=== PATIENT | male | born 1945 | race American Indian/Alaskan Native ===

== ENCOUNTER 2021-10-07 00:56 | Inpatient (IN) | payer MEDICARE ==
[2021-10-07] MEDS ORDERED: FUROSEMIDE 40 MG/4 ML INJ IV ONE (01:00)
--- NOTE | 2021-10-07 01:09 | Emergency Department Report ---
ED General Adult HPI - General Chief complaint: Dyspnea/Respdistress Stated complaint: KADEN PUI?: Yes Time Seen by Provider: 10/07/21 00:57 Source: patient, EMS Mode of arrival: Stretcher Limitations: No Limitations - History of Present Illness Initial comments: This is a pleasant 75-year-old male brought in by EMS with concerns of short of breath which recurrent patient that has been going on for several days now. According to the patient also EMS patient has a history of congestive heart failure he was recently admitted to the hospital for the same. On arrival, patient was sating at 79% and after albuterol given; up to 85-90%. On arrival, patient is on non-rebreather sating in high 80s and verbal order was to get RT to start BIPAP. Patient denies any other discomfort denies fever chill night sweat dizziness blurred vision lightheadedness headache tinnitus ear pain runny nose sore throat loss of taste or smell chest pain palpitation cough abdominal pain nausea vomiting diarrhea constipation dysuria myalgia arthralgia new rash and heat or cold intolerance. - Related Data Home Medications Medication Instructions Recorded Confirmed Last Taken AtorvaSTATin [Lipitor] 40 mg PO QHS 10/07/21 10/07/21 Unknown Metoprolol [Lopressor TAB] 25 mg PO BID 10/07/21 10/07/21 Unknown Previous Rx's Medication Instructions Recorded Last Taken Type Aspirin EC [Halfprin EC] 81 mg PO QDAY #30 tablet. 08/19/21 Unknown Rx Furosemide [Lasix TAB] 40 mg PO QDAY #30 tablet 08/19/21 Unknown Rx lisinopriL [Zestril TAB] 20 mg PO QDAY #30 tablet 08/19/21 Unknown Rx Allergies Allergy/AdvReac Type Severity Reaction Status Date / Time No Known Allergies Allergy Verified 08/19/21 09:44 ED Review of Systems ROS: Stated complaint: KADEN Other details as noted in HPI Constitutional: see HPI Eyes: as per HPI ENT: as per HPI Respiratory: see HPI Cardiovascular: as per HPI Endocrine: see HPI Gastrointestinal: as per HPI Genitourinary: as per HPI Musculoskeletal: as per HPI Skin: as per HPI Neurological: as per HPI Psychiatric: as per HPI Hematological/Lymphatic: as per HPI ED Past Medical Hx - Past Medical History Hx Congestive Heart Failure: Yes - Surgical History Additional Surgical History: Herniorrhaphy, thoracentesis - Social History Smoking Status: Current Every Day Smoker - Medications Home Medications: Home Medications Medication Instructions Recorded Confirmed Last Taken Type Aspirin EC [Halfprin EC] 81 mg PO QDAY #30 tablet. 08/19/21 10/07/21 Unknown Rx Furosemide [Lasix TAB] 40 mg PO QDAY #30 tablet 08/19/21 10/07/21 Unknown Rx lisinopriL [Zestril TAB] 20 mg PO QDAY #30 tablet 08/19/21 10/07/21 Unknown Rx AtorvaSTATin [Lipitor] 40 mg PO QHS 10/07/21 10/07/21 Unknown History Metoprolol [Lopressor TAB] 25 mg PO BID 10/07/21 10/07/21 Unknown History ED Physical Exam - General Limitations: No Limitations General appearance: alert, in distress (MILD DISTRESS; ABLE TO SPEAK IN FULL SENTENCES) - Head Head exam: Present: atraumatic, normocephalic, normal inspection - Eye Eye exam: Present: normal appearance, PERRL Pupils: Present: normal accommodation - ENT ENT exam: Present: normal exam, normal orophraynx - Neck Neck exam: Present: normal inspection - Respiratory Respiratory exam: Present: respiratory distress, decreased breath sounds (BILATEARLLY) - Cardiovascular Cardiovascular Exam: Present: tachycardia - GI/Abdominal GI/Abdominal exam: Present: soft. Absent: distended, tenderness, guarding, rebound - Extremities Exam Extremities exam: Present: normal inspection, full ROM - Back Exam Back exam: Present: normal inspection, full ROM - Neurological Exam Neurological exam: Present: oriented X3, CN II-XII intact - Psychiatric Psychiatric exam: Present: normal affect, normal mood - Skin Skin exam: Present: warm ED Course Vital Signs 10/07/21 10/07/21 10/07/21 01:01 01:16 01:26 Temperature 99.1 F Pulse Rate 112 H 109 H 109 H Pulse Rate [ Bilateral] Respiratory 24 18 26 H Rate Respiratory Rate [Bilateral ] Blood Pressure 157/83 159/98 O2 Sat by Pulse 85 93 100 Oximetry 10/07/21 10/07/21 10/07/21 01:31 01:44 01:45 Temperature Pulse Rate 109 H 102 H Pulse Rate [ 102 H Bilateral] Respiratory 17 28 H Rate Respiratory 28 H Rate [Bilateral ] Blood Pressure 159/98 114/70 O2 Sat by Pulse 100 96 Oximetry 10/07/21 10/07/21 10/07/21 02:01 02:15 02:31 Temperature Pulse Rate 99 H 93 H 89 Pulse Rate [ Bilateral] Respiratory 23 26 H 27 H Rate Respiratory Rate [Bilateral ] Blood Pressure 99/65 79/59 88/60 O2 Sat by Pulse 92 Oximetry 10/07/21 10/07/21 10/07/21 02:46 03:00 03:16 Temperature Pulse Rate 89 85 84 Pulse Rate [ Bilateral] Respiratory 26 H 18 24 Rate Respiratory Rate [Bilateral ] Blood Pressure 94/65 83/61 O2 Sat by Pulse Oximetry 10/07/21 10/07/21 10/07/21 03:30 03:46 04:17 Temperature Pulse Rate 84 83 100 H Pulse Rate [ Bilateral] Respiratory 24 22 Rate Respiratory Rate [Bilateral ] Blood Pressure 102/70 104/71 102/65 O2 Sat by Pulse 98 Oximetry 10/07/21 10/07/21 04:30 04:46 Temperature Pulse Rate 96 H 99 H Pulse Rate [ Bilateral] Respiratory 23 21 Rate Respiratory Rate [Bilateral ] Blood Pressure 123/80 122/80 O2 Sat by Pulse 93 87 Oximetry - Reevaluation(s) Reevaluation #1: 10/07/21 02:30 NURSE BROUGHT TO MY ATTENTION THAT PATIENT'S WAS HYPOTENSIVE; GIVEN THAT PATIENT WAS RECENTLY ADMITTED TO THE HOSPITAL, I WILL START PATIENT ON BROAD SPECTRUM ANTIBIOTICS IN CASE OF HOSPITAL ACQUIRED PNEUMONIA. 10/07/21 03:10 DDIMER RETURNED; ELEVATED; WILL GET CTPA TO R/O PE. BNP ELEVATED; THEREFORE LIKELY CHF EXACERBATION OR SUBMASSIVE/MASSIVE PE IN SETTING OF HYPOTENSION. 10/07/21 03:15 PER NURSE, PATIENT'S BLOOD PRESSURE BETTER; THEREFORE, I SUSPECT JUST CHF EXAERBATION AND NOT SUBMASSIVE PE. ED Medical Decision Making - Lab Data Result diagrams: 10/07/21 01:05 10/07/21 01:05 - EKG Data -: EKG Interpreted by Me (SINUS TACHY AT 114 BPM; NO ST ELEVATION OR DEPRESSION; RAD.) EKG shows normal: sinus rhythm Rate: normal - Medical Decision Making SPOKE TO HOSPITALIST WHO KINDLY ACCEPTED THE PATIENT FOR CHF EXACERBATION WITH BILATERAL PLEURAL EFFUSION AND PULMONARY EDEMA WHO INITIALLY WAS SATING 79% AND ON NON-REBREATHER TO 89% AND WAS IMMEDIATELY PLACED ON BIPAP; SINCE ON BIPAP FOR ABOUT 3 HORUS AND WHILE LASIX ONBOARD, PATIENT IS CURRENTLY ON 3L SATING 92-93% WITH ABOUT 600ML URINE OUTPUT. Critical care attestation.: If time is entered above; I have spent that time in minutes in the direct care of this critically ill patient, excluding procedure time. ED Disposition Clinical Impression: Acute exacerbation of CHF (congestive heart failure), Bilateral pleural effusion, Pulmonary edema cardiac cause Disposition: 02 SHORT TERM HOSPITAL Is pt being admited?: Yes Does the pt Need Aspirin: No Condition: Stable Instructions: Pulmonary Edema (ED) Time of Disposition: 05:00
[2021-10-07] MEDS ORDERED: methylPREDNISolone Sod Succinate 125 MG/2 ML INJ IV ONE (01:14)
[2021-10-07] MEDS ORDERED: LEVALBUTEROL 0.63 MG/3 ML NEBU IH ONE (01:14)
[2021-10-07 01:27] LABS: Hematocrit 38.7 % (35.5-45.6); Hemoglobin 12.9 gm/dl (11.8-15.2); Mean Corpuscular HGB Conc 33 % (32-34); Mean Corpuscular Volume 98 fl (84-94); Platelet Count 269 K/mm3 (140-440); Red Blood Count 3.96 M/mm3 (3.65-5.03); Red Cell Distribution Width 13.6 % (13.2-15.2)
--- NOTE | 2021-10-07 01:28 | XRay Report ---
CHEST 1 VIEW INDICATION / CLINICAL INFORMATION: LOW SAT ON RA; HX OF CHF. COMPARISON: Chest x-ray 08/17/2021 FINDINGS: SUPPORT DEVICES: None. HEART / MEDIASTINUM: No significant abnormality. LUNGS / PLEURA: Diffuse bilateral increased interstitial stranding and scattered airspace opacities w ithin the bases. Minimal right costophrenic angle blunting. Small dependent left pleural effusion. BONES: No significant osseous abnormality. ADDITIONAL FINDINGS: No significant additional findings. IMPRESSION: 1. Decompensated CHF with features of interstitial and alveolar pulmonary edema as well as small left and trace dependent right pleural effusions. Signer Name: Juan Holbrook II, MD Signed: 10/07/2021 1:24 AM Workstation Name: [id number]
[2021-10-07 01:54] LABS: Alanine Aminotransferase 41 units/L (7-56); Albumin 3.5 g/dL (3.9-5); BUN/Creatinine Ratio 11; Blood Urea Nitrogen 10 mg/dL (9-20); Calcium 8.3 mg/dL (8.4-10.2); Hemolysis Index 26
[2021-10-07] MEDS ORDERED: CEFEPIME/NS 2 GM/100 ML 2 GM/100 ML BAG IV ONE (02:25)
[2021-10-07] MEDS ORDERED: VANCOMYCIN/NS 1 GM/250 ML 1 GM/250 ML BAG IV ONE (02:26)
[2021-10-07 03:45] LABS: Basophils % (Manual) 0 % (0.0-1.8); Eosinophils % (Manual) 0 % (0.0-4.3); Total Cells Counted 100
[2021-10-07 03:47] LABS: Anisocytosis 1+
[2021-10-07 03:48] LABS: Giant Platelets Rare; Platelet Clumps Few; Platelet Estimate Consistent w Auto
[2021-10-07 04:03] LABS: C-Reactive Protein 2.6 mg/dL (0.00-1.30)
--- NOTE | 2021-10-07 04:46 | Cat Scan Report ---
CTA CHEST WITH CONTRAST INDICATION / CLINICAL INFORMATION: DESAT + elevated D-dimer, question possible P.E.. TECHNIQUE: Axial CT images were obtained through the chest after injection of 100 cc Omnipaque 350 IV contrast. 3 plane MIP and/or 3D reconstructions were produced. All CT scans at this location are per formed using CT dose reduction for ALARA by means of automated exposure control. COMPARISON: Chest x-ray same date FINDINGS: VASCULAR FINDINGS: PULMONARY ARTERY: Pulmonary artery is normal in size. No filling defects are present compatible with pulmonary artery embolus.. THORACIC AORTA: No significant abnormality. CORONARY ARTERY CALCIFICATION: Present -- Mild. NONVASCULAR FINDINGS: LOWER NECK: Soft tissues and musculature of the lower neck demonstrate no significant abnormality. Th e thyroid demonstrates no significant abnormality. HEART: Heart size normal. Left ventricular hypertrophy suggested. No pericardial effusion. MEDIASTINUM / SHOSHANA: No significant abnormality. ESOPHAGUS: Grossly unremarkable. LYMPH NODES: Borderline to minimally enlarged right hilar lymph nodes. LUNGS: Moderate centrilobular emphysema is demonstrated with some areas of honeycombing within the po sterior right upper lobe not excluded. Additionally, thickened septal lines are minimally present wit hin the lower lobes. Moderate passive atelectasis of the dependent upper lobes and partial lobar atel ectasis of the lower lobes is demonstrated. No endobronchial lesions. PLEURA: Dependent pleural effusions are present bilaterally [id number]-se-mexwslew in size. Bilateral locu lation suggested. No pneumothorax. THORACIC SOFT TISSUES: No significant abnormality of the chest wall or upper thoracic musculature. BONES: No significant skeletal abnormalities. ADDITIONAL CHEST FINDINGS: None. UPPER ABDOMEN: No significant abnormality. IMPRESSION: 1. No CT evidence for pulmonary embolism. 2. [id number] bilateral pleural effusions with loculated appearance. 3. Moderate centrilobular emphysema superimposed areas of lung attenuation suggesting pulmonary edema . Additional partial lobar atelectasis of the lower lobes is demonstrated. Signer Name: Juan Holbrook II, MD Signed: 10/07/2021 4:42 AM Workstation Name: [id number]
[2021-10-07] MEDS ORDERED: HYDROmorphone 1 MG/1 ML INJ IV PRN (05:24)
[2021-10-07] MEDS ORDERED: MORPHINE 2 MG/1 ML INJ IV PRN (05:24)
[2021-10-07] MEDS ORDERED: ALBUTEROL 2.5 MG/3 ML NEBU IH PRN (05:24)
[2021-10-07] MEDS ORDERED: ONDANSETRON 4 MG/2 ML INJ IV PRN (05:24)
[2021-10-07] MEDS ORDERED: ACETAMINOPHEN 325 MG TAB PO PRN (05:24)
--- NOTE | 2021-10-07 05:32 | History and Physical Report ---
History of Present Illness Date of examination: 10/07/21 Date of admission: 10/07/21 Chief complaint: Dyspnea Respiratory distress History of present illness: 75-year-old male with past medical history of congestive heart failure and tobacco abuse was brought to the emergency room because of short of breath which recurrent patient that has been going on for several days now. According to the patient also was recently admitted to the hospital for the same. On arrival, patient was sating at 79% and after albuterol given; up to 85-90%. On arrival, patient is on non-rebreather sating in high 80s and verbal order was to get RT to start BIPAP. In the emergency room patient is found to have acute CHF exacerbation. Patient proBNP is 10/04/2007, lactic acid 3.00. Chest CTA shows no evidence of PE. A small to moderate bilateral pleural effusion with loculated appearance. Moderate centrilobular emphysema. So going to admit the patient we will put the patient on CHF pathway also put the patient on antibiotic and consult cardiology for evaluation Past History Past Medical History: heart failure, hypertension Past Surgical History: Other (Herniorrhaphy, thoracentesis) Social history: other (Current everyday smoker) Family history: hypertension Medications and Allergies Allergies Allergy/AdvReac Type Severity Reaction Status Date / Time No Known Allergies Allergy Verified 08/19/21 09:44 Home Medications Medication Instructions Recorded Confirmed Last Taken Type Aspirin EC [Halfprin EC] 81 mg PO QDAY #30 tablet. 08/19/21 10/07/21 Unknown Rx Furosemide [Lasix TAB] 40 mg PO QDAY #30 tablet 08/19/21 10/07/21 Unknown Rx lisinopriL [Zestril TAB] 20 mg PO QDAY #30 tablet 08/19/21 10/07/21 Unknown Rx AtorvaSTATin [Lipitor] 40 mg PO QHS 10/07/21 10/07/21 Unknown History Metoprolol [Lopressor TAB] 25 mg PO BID 10/07/21 10/07/21 Unknown History Active Meds: Active Medications Acetaminophen (Acetaminophen 325 Mg Tab) 650 mg PO Q4H PRN PRN Reason: Pain MILD(1-3)/Fever >100.5/SCOTT Albuterol (Albuterol 2.5 Mg/3 Ml Nebu) 2.5 mg IH Q3HRT PRN PRN Reason: Shortness Of Breath Albuterol/Ipratropium (Ipratropium/Albuterol Sulfate 3 Ml Ampul.Neb) 1 ampul IH Q6HRT MESERET Famotidine (Famotidine 20 Mg Tab) 20 mg PO BID MESERET Furosemide (Furosemide 40 Mg/4 Ml Inj) 40 mg IV BID@0600,1800 MESERET Heparin Sodium (Porcine) (Heparin 5,000 Unit/1 Ml Vial) 5,000 unit SUB-Q Q12HR MESERET Hydromorphone HCl (Hydromorphone 1 Mg/1 Ml Inj) 0.5 mg IV Q3H PRN PRN Reason: Pain , Severe (7-10) Morphine Sulfate (Morphine 2 Mg/1 Ml Inj) 2 mg IV Q4H PRN PRN Reason: Pain, Moderate (4-6) Ondansetron HCl (Ondansetron 4 Mg/2 Ml Inj) 4 mg IV Q8H PRN PRN Reason: Nausea And Vomiting Sodium Chloride (Sodium Chloride 0.9% 10 Ml Flush Syringe) 10 ml IV BID MESERET Sodium Chloride (Sodium Chloride 0.9% 10 Ml Flush Syringe) 10 ml IV PRN PRN PRN Reason: LINE FLUSH Review of Systems All systems: negative Cardiovascular: edema, shortness of breath, dyspnea on exertion, paroxysmal nocturnal dyspnea Respiratory: shortness of breath, dyspnea on exertion Exam - Constitutional Vitals: Temp Pulse Resp BP Pulse Ox 99.1 F 99 H 21 122/80 87 10/07/21 01:01 10/07/21 04:46 10/07/21 04:46 10/07/21 04:46 10/07/21 04:46 General appearance: Present: no acute distress, well-nourished - EENT Eyes: Present: PERRL ENT: hearing intact, clear oral mucosa - Neck Neck: Present: supple, normal ROM - Respiratory Respiratory effort: normal Respiratory: bilateral: rales - Cardiovascular Heart Sounds: Present: S1 & S2. Absent: rub, click - Extremities Extremities: pulses symmetrical, No edema Peripheral Pulses: within normal limits - Abdominal General gastrointestinal: Present: soft, non-tender, non-distended, normal bowel sounds Male genitourinary: Present: normal - Integumentary Integumentary: Present: clear, warm, dry - Musculoskeletal Musculoskeletal: gait normal, strength equal bilaterally - Psychiatric Psychiatric: appropriate mood/affect, intact judgment & insight - Neurologic Neurologic: CNII-XII intact, moves all extremities Results - Labs CBC & Chem 7: 10/07/21 01:05 10/07/21 01:05 Labs: Laboratory Last Values WBC 5.5 K/mm3 (4.5-11.0) 10/07/21 01:05 RBC 3.96 M/mm3 (3.65-5.03) 10/07/21 01:05 Hgb 12.9 gm/dl (11.8-15.2) 10/07/21 01:05 Hct 38.7 % (35.5-45.6) 10/07/21 01:05 MCV 98 fl (84-94) H 10/07/21 01:05 MCH 33 pg (28-32) H 10/07/21 01:05 MCHC 33 % (32-34) 10/07/21 01:05 RDW 13.6 % (13.2-15.2) 10/07/21 01:05 Plt Count 269 K/mm3 (140-440) 10/07/21 01:05 Lymph % (Auto) Spa Manager 10/07/21 01:05 Add Manual Diff Complete 10/07/21 01:05 Total Counted 100 10/07/21 01:05 Seg Neutrophils % Spa Manager 10/07/21 01:05 Seg Neuts % (Manual) 28.0 % (40.0-70.0) L 10/07/21 01:05 Band Neutrophils % 0 % 10/07/21 01:05 Lymphocytes % (Manual) 69.0 % (13.4-35.0) H 10/07/21 01:05 Reactive Lymphs % (Man) 0 % 10/07/21 01:05 Monocytes % (Manual) 3.0 % (0.0-7.3) 10/07/21 01:05 Eosinophils % (Manual) 0 % (0.0-4.3) 10/07/21 01:05 Basophils % (Manual) 0 % (0.0-1.8) 10/07/21 01:05 Metamyelocytes % 0 % 10/07/21 01:05 Myelocytes % 0 % 10/07/21 01:05 Promyelocytes % 0 % 10/07/21 01:05 Blast Cells % 0 % 10/07/21 01:05 Nucleated RBC % Not Reportable 10/07/21 01:05 Seg Neutrophils # Man 1.5 K/mm3 (1.8-7.7) L 10/07/21 01:05 Band Neutrophils # 0.0 K/mm3 10/07/21 01:05 Lymphocytes # (Manual) 3.8 K/mm3 (1.2-5.4) 10/07/21 01:05 Abs React Lymphs (Man) 0.0 K/mm3 10/07/21 01:05 Monocytes # (Manual) 0.2 K/mm3 (0.0-0.8) 10/07/21 01:05 Eosinophils # (Manual) 0.0 K/mm3 (0.0-0.4) 10/07/21 01:05 Basophils # (Manual) 0.0 K/mm3 (0.0-0.1) 10/07/21 01:05 Metamyelocytes # 0.0 K/mm3 10/07/21 01:05 Myelocytes # 0.0 K/mm3 10/07/21 01:05 Promyelocytes # 0.0 K/mm3 10/07/21 01:05 Blast Cells # 0.0 K/mm3 10/07/21 01:05 WBC Morphology Not Reportable 10/07/21 01:05 Hypersegmented Neuts Not Reportable 10/07/21 01:05 Hyposegmented Neuts Not Reportable 10/07/21 01:05 Hypogranular Neuts Not Reportable 10/07/21 01:05 Smudge Cells Not Reportable 10/07/21 01:05 Toxic Granulation Not Reportable 10/07/21 01:05 Toxic Vacuolation Not Reportable 10/07/21 01:05 Dohle Bodies Not Reportable 10/07/21 01:05 Pelger-Huet Anomaly Not Reportable 10/07/21 01:05 Tahmina Rods Not Reportable 10/07/21 01:05 Platelet Estimate Consistent w auto 10/07/21 01:05 Clumped Platelets Few 10/07/21 01:05 Plt Clumps, EDTA Not Reportable 10/07/21 01:05 Large Platelets Not Reportable 10/07/21 01:05 Giant Platelets Rare 10/07/21 01:05 Platelet Satelliting Not Reportable 10/07/21 01:05 Plt Morphology Comment Not Reportable 10/07/21 01:05 RBC Morphology Not Reportable 10/07/21 01:05 Dimorphic RBCs Not Reportable 10/07/21 01:05 Polychromasia Not Reportable 10/07/21 01:05 Hypochromasia Not Reportable 10/07/21 01:05 Poikilocytosis Not Reportable 10/07/21 01:05 Anisocytosis 1+ 10/07/21 01:05 Microcytosis Not Reportable 10/07/21 01:05 Macrocytosis Not Reportable 10/07/21 01:05 Spherocytes Not Reportable 10/07/21 01:05 Pappenheimer Bodies Not Reportable 10/07/21 01:05 Sickle Cells Not Reportable 10/07/21 01:05 Target Cells Not Reportable 10/07/21 01:05 Tear Drop Cells Not Reportable 10/07/21 01:05 Ovalocytes Not Reportable 10/07/21 01:05 Helmet Cells Not Reportable 10/07/21 01:05 Anderson-Lenox Bodies Not Reportable 10/07/21 01:05 Cla[place]on Rings Not Reportable 10/07/21 01:05 Maninder Cells Not Reportable 10/07/21 01:05 Bite Cells Not Reportable 10/07/21 01:05 Crenated Cell Not Reportable 10/07/21 01:05 Elliptocytes Not Reportable 10/07/21 01:05 Acanthocytes (Spur) Not Reportable 10/07/21 01:05 Rouleaux Not Reportable 10/07/21 01:05 Hemoglobin C Crystals Not Reportable 10/07/21 01:05 Schistocytes Not Reportable 10/07/21 01:05 Malaria parasites Not Reportable 10/07/21 01:05 Elvis Bodies Not Reportable 10/07/21 01:05 Hem Pathologist Commnt No 10/07/21 01:05 D-Dimer 1082.14 ng/mlDDU (0-234) H 10/07/21 01:05 Sodium 132 mmol/L (137-145) L 10/07/21 01:05 Potassium 3.9 mmol/L (3.6-5.0) 10/07/21 01:05 Chloride 96.3 mmol/L (98-107) L 10/07/21 01:05 Carbon Dioxide 21 mmol/L (22-30) L 10/07/21 01:05 Anion Gap 19 mmol/L 10/07/21 01:05 BUN 10 mg/dL (9-20) 10/07/21 01:05 Creatinine 0.9 mg/dL (0.8-1.3) 10/07/21 01:05 Estimated GFR > 60 ml/min 10/07/21 01:05 BUN/Creatinine Ratio 11 % 10/07/21 01:05 Glucose 240 mg/dL (75-100) H 10/07/21 01:05 Lactic Acid 2.50 mmol/L (0.7-2.0) H* 10/07/21 03:40 Calcium 8.3 mg/dL (8.4-10.2) L 10/07/21 01:05 Ferritin 195.7 ng/mL (30.0-300.0) 10/07/21 01:13 Total Bilirubin 0.40 mg/dL (0.1-1.2) 10/07/21 01:05 AST 59 units/L (5-40) H 10/07/21 01:05 ALT 41 units/L (7-56) 10/07/21 01:05 Alkaline Phosphatase 102 units/L (35-129) 10/07/21 01:05 Lactate Dehydrogenase 338 units/L (91-180) H 10/07/21 01:13 C-Reactive Protein 2.60 mg/dL (0.00-1.30) H 10/07/21 01:13 NT-Pro-B Natriuret Pep 5108 pg/mL (0-900) H 10/07/21 01:05 Total Protein 5.3 g/dL (6.3-8.2) L 10/07/21 01:05 Albumin 3.5 g/dL (3.9-5) L 10/07/21 01:05 Albumin/Globulin Ratio 1.9 % 10/07/21 01:05 - Imaging and Cardiology CT scan - chest: report reviewed Assessment and Plan VTE prophylaxis?: Chemical Plan of care discussed with patient/family: Yes - Patient Problems (1) Acute exacerbation of CHF (congestive heart failure) Current Visit: Yes Status: Acute Plan to address problem: Admit the patient to the medical telemetry. Cardiac diet. Oxygen via nasal penetrator per minute. DuoNeb by nebulizer every 4 hours. Fluid restriction. Lasix 40 mg IV every 12 hours. Maintain input output. Echocardiogram. Cardiology evaluation (2) Bilateral pleural effusion Current Visit: Yes Status: Acute Plan to address problem: Fluid restriction. Lasix 40 mg IV every 12 hours. Maintain input output. Echocardiogram. Cardiology evaluation (3) Pulmonary edema cardiac cause Current Visit: Yes Status: Acute Plan to address problem: Oxygen via nasal penetrator per minute. DuoNeb by nebulizer every 4 hours. Fluid restriction. Lasix 40 mg IV every 12 hours. Maintain input output. Echocardiogram. Cardiology evaluation (4) Hypoxia Current Visit: No Status: Acute Plan to address problem: Oxygen via nasal penetrator per minute. DuoNeb by nebulizer every 4 hours. Albuterol via nebulizer every 4 hours as needed (5) Tobacco abuse Current Visit: No Status: Acute Plan to address problem: We counseled the patient regarding quitting smoking. We will put the patient on nicotine patch (6) DVT prophylaxis Current Visit: No Status: Acute Plan to address problem: Heparin 5000 units subcu every 12 hours for DVT prophylaxis. Pepcid 20 mg p.o. twice daily for GI prophylaxis. Patient is a full code
[2021-10-07] MEDS ORDERED: hydrALAZINE 20 MG/1 ML INJ IV PRN (05:34)
[2021-10-07] MEDS ORDERED: NICOTINE 21 MG/24 HR PATCH TD ONE (06:00)
[2021-10-07] MEDS: FUROSEMIDE 40 MG/4 ML INJ IV SCH ×2 (07:52→17:39)
[2021-10-07] MEDS: FAMOTIDINE 20 MG TAB PO SCH ×2 (09:16→21:12)
[2021-10-07] MEDS: METOPROLOL TARTRATE 25 MG TAB PO SCH ×2 (09:16→21:12)
[2021-10-07] MEDS: ASPIRIN EC 81 MG TAB PO SCH (09:16)
[2021-10-07] MEDS: HEPARIN 5,000 UNIT/1 ML VIAL SUB-Q SCH ×2 (09:16→21:11)
[2021-10-07] MEDS: LISINOPRIL 20 MG TAB PO SCH (09:18)
[2021-10-07] MEDS: IPRATROPIUM/ALBUTEROL SULFATE 3 ML AMPUL.NEB IH SCH ×3 (09:30→20:20)
[2021-10-07 10:17] LABS: ABG Base Excess -1.1 mmol/L (-2.0-3.0); ABG Methemoglobin 0.5 % (0.0-1.5); ABG Oxygen Saturation 95.8 % (95.0-99.0); ABG PCO2 36.3 mm Hg; ABG PH 7.42 pH Units (7.350-7.450); ABG PO2 74.5 mm Hg (80.0-90.0)
--- NOTE | 2021-10-07 10:49 | Electrocardiograph Report ---
[facility] Test Date: 2021-10-07 Test Time: 01:25:03 Pat Name: GREGG NUÑEZ Department: Room: A352 1 Gender: M Captain Airline Pilot: GAVINO : 1945 Requested By: CHAPARRO SOLOMON Order Number: [id number] Reading MD: Edmund Mtz Measurements Intervals [place] Rate: 114 P: 67 ME: 170 QRS: 127 QRSD: 96 T: 91 QT: 330 QTc: 454 Interpretive Statements Sinus tachycardia Right axis deviation Low voltage, extremity leads Consider anteroseptal infarct Nonspecific T abnormalities, lateral leads Compared to ECG 08/19/2021 13:17:51 Myocardial infarct finding now present Sinus rhythm no longer present Possible ischemia no longer present T-wave abnormality still present Electronically Signed On 10-07-2021 10:49:15 EDT by Edmund Mtz
--- NOTE | 2021-10-07 11:29 | Consultation ---
History of Present Illness Consult date: 10/07/21 Consult reason: congestive heart failure History of present illness: The patient is a 75-year-old man who was in this hospital last month, and underwent extensive cardiac ischemic work-up. An echocardiogram showed moderately severe left ventricular systolic dysfunction, in the setting of severe, concentric left ventricle hypertrophy left ventricular ejection fraction was estimated about 30%. He underwent a cardiac catheterization that demonstrated no significant coronary artery disease. He was discharged with a diagnosis of a nonischemic cardiomyopathy, with associated severe LVH. He presents to the hospital at this time with recurrent shortness of breath. He is a poor historian, I am unable to discern if he was compliant with prescribed medical therapy or dietary salt restrictions. EKG on presentation was a sinus rhythm with poor R wave progression, nonspecific ST and T wave changes, no acute ischemia or infarction. Chest x-ray reveals severe bilateral pulmonary edema. He now looks and feels better, shortness of breath is improved following initial hospital therapy. Past History Past Medical History: heart failure, hypertension Past Surgical History: Other (Herniorrhaphy, thoracentesis) Social history: other (Current everyday smoker) Family history: hypertension Medications and Allergies Allergies Allergy/AdvReac Type Severity Reaction Status Date / Time No Known Allergies Allergy Verified 08/19/21 09:44 Home Medications Medication Instructions Recorded Confirmed Last Taken Type lisinopriL [Zestril TAB] 20 mg PO QDAY #30 tablet 08/19/21 10/07/21 3 Weeks Ago Rx ~09/16/21 Albuterol Mdi (or & Nicu Only) 2 puff IH Q46H PRN 10/07/21 10/07/21 Unknown History [ProAir HFA Inhaler] Aspirin [Aspirin BABY CHEW TAB] 81 mg PO QDAY 10/07/21 10/07/21 10/06/21 History AtorvaSTATin [Lipitor] 40 mg PO QHS 10/07/21 10/07/21 10/05/21 History Furosemide [Lasix] 20 mg PO QDAY 10/07/21 10/07/21 10/06/21 History Metoprolol [Lopressor TAB] 25 mg PO BID 10/07/21 10/07/21 10/06/21 History Potassium Chloride [K-Dur] 20 meq PO QDAY 10/07/21 10/07/21 10/06/21 History Sacubitril/Valsartan [Entresto 24 1 tab PO BID 10/07/21 10/07/21 10/06/21 History - 26 mg] Active Meds: Active Medications Acetaminophen (Acetaminophen 325 Mg Tab) 650 mg PO Q4H PRN PRN Reason: Pain MILD(1-3)/Fever >100.5/SCOTT Albuterol (Albuterol 2.5 Mg/3 Ml Nebu) 2.5 mg IH Q3HRT PRN PRN Reason: Shortness Of Breath Albuterol/Ipratropium (Ipratropium/Albuterol Sulfate 3 Ml Ampul.Neb) 1 ampul IH Q6HRT [facility] Last Admin: 10/07/21 09:30 Dose: 1 ampul Aspirin (Aspirin Ec 81 Mg Tab) 81 mg PO QDAY [facility] Last Admin: 10/07/21 09:16 Dose: 81 mg Atorvastatin Calcium (Atorvastatin 40 Mg Tab) 40 mg PO QHS [facility] Famotidine (Famotidine 20 Mg Tab) 20 mg PO BID [facility] Last Admin: 10/07/21 09:16 Dose: 20 mg Furosemide (Furosemide 40 Mg/4 Ml Inj) 40 mg IV BID@0600,1800 [facility] Last Admin: 10/07/21 07:52 Dose: 40 mg Heparin Sodium (Porcine) (Heparin 5,000 Unit/1 Ml Vial) 5,000 unit SUB-Q Q12HR [facility] Last Admin: 10/07/21 09:16 Dose: 5,000 unit Hydralazine HCl (Hydralazine 20 Mg/1 Ml Inj) 10 mg IV Q6H PRN PRN Reason: SBP>/=160; DBP >/=100 Hydromorphone HCl (Hydromorphone 1 Mg/1 Ml Inj) 0.5 mg IV Q3H PRN PRN Reason: Pain , Severe (7-10) Lisinopril (Lisinopril 20 Mg Tab) 20 mg PO QDAY [facility] Last Admin: 10/07/21 09:18 Dose: 20 mg Metoprolol Tartrate (Metoprolol Tartrate 25 Mg Tab) 25 mg PO BID [facility] Last Admin: 10/07/21 09:16 Dose: 25 mg Morphine Sulfate (Morphine 2 Mg/1 Ml Inj) 2 mg IV Q4H PRN PRN Reason: Pain, Moderate (4-6) Ondansetron HCl (Ondansetron 4 Mg/2 Ml Inj) 4 mg IV Q8H PRN PRN Reason: Nausea And Vomiting Sodium Chloride (Sodium Chloride 0.9% 10 Ml Flush Syringe) 10 ml IV BID [facility] Last Admin: 10/07/21 09:16 Dose: 10 ml Sodium Chloride (Sodium Chloride 0.9% 10 Ml Flush Syringe) 10 ml IV PRN PRN PRN Reason: LINE FLUSH Physical Examination Vital Signs Temp Pulse Resp BP Pulse Ox 99.1 F 112 H 24 157/83 85 10/07/21 01:01 10/07/21 01:01 10/07/21 01:01 10/07/21 01:01 10/07/21 01:01 Results 10/07/21 01:05 10/07/21 01:05 Cardiac Enzymes 10/07/21 10/07/21 Range/Units 01:05 01:13 AST 59 H (5-40) units/L Lactate Dehydrogenase 338 H (91-180) units/L CBC 10/07/21 Range/Units 01:05 WBC 5.5 (4.5-11.0) K/mm3 RBC 3.96 (3.65-5.03) M/mm3 Hgb 12.9 (11.8-15.2) gm/dl Hct 38.7 (35.5-45.6) % Plt Count 269 (140-440) K/mm3 Comprehensive Metabolic Panel 10/07/21 Range/Units 01:05 Sodium 132 L (137-145) mmol/L Potassium 3.9 (3.6-5.0) mmol/L Chloride 96.3 L (98-107) mmol/L Carbon Dioxide 21 L (22-30) mmol/L BUN 10 (9-20) mg/dL Creatinine 0.9 (0.8-1.3) mg/dL Glucose 240 H (75-100) mg/dL Calcium 8.3 L (8.4-10.2) mg/dL AST 59 H (5-40) units/L ALT 41 (7-56) units/L Alkaline Phosphatase 102 (35-129) units/L Total Protein 5.3 L (6.3-8.2) g/dL Albumin 3.5 L (3.9-5) g/dL
[2021-10-08 06:29] LABS: Basophils % (Auto) 0.3 % (0.0-1.8); Eosinophils % (Auto) 0.1 % (0.0-4.3); Hematocrit 36.1 % (35.5-45.6); Hemoglobin 11.9 gm/dl (11.8-15.2); Lymphocytes % (Auto) 22.9 % (13.4-35.0); Mean Corpuscular HGB Conc 33 % (32-34); Mean Corpuscular Volume 98 fl (84-94); Monocytes # (Auto) 0.4 K/mm3 (0.0-0.8); Monocytes % (Auto) 9.2 % (0.0-7.3); Platelet Count 243 K/mm3 (140-440); Red Cell Distribution Width 13.5 % (13.2-15.2)
[2021-10-08] MEDS: FUROSEMIDE 40 MG/4 ML INJ IV SCH ×2 (06:37→17:21)
[2021-10-08 06:47] LABS: BUN/Creatinine Ratio 14; Blood Urea Nitrogen 13 mg/dL (9-20); Calcium 9.2 mg/dL (8.4-10.2); Hemolysis Index 1
--- NOTE | 2021-10-08 07:27 | Event Note ---
Date: 10/07/21 Patient seen and examined Shortness of breath is better Echocardiogram is pending Probable discharge tomorrow
[2021-10-08] MEDS: IPRATROPIUM/ALBUTEROL SULFATE 3 ML AMPUL.NEB IH SCH ×3 (08:25→20:39)
[2021-10-08] MEDS: ASPIRIN EC 81 MG TAB PO SCH (09:26)
[2021-10-08] MEDS: METOPROLOL TARTRATE 25 MG TAB PO SCH ×2 (09:26→21:21)
[2021-10-08] MEDS: FAMOTIDINE 20 MG TAB PO SCH ×2 (09:26→21:18)
[2021-10-08] MEDS: LISINOPRIL 20 MG TAB PO SCH (09:26)
[2021-10-08] MEDS: HEPARIN 5,000 UNIT/1 ML VIAL SUB-Q SCH ×2 (09:27→21:17)
--- NOTE | 2021-10-08 10:22 | Progress Note ---
Assessment and Plan - Patient Problems (1) Acute exacerbation of CHF (congestive heart failure) Current Visit: Yes Status: Acute Plan to address problem: History of nonischemic cardiomyopathy. An echocardiogram done last month showed moderately severe left ventricular systolic dysfunction, in the setting of severe, concentric left ventricle hypertrophy left ventricular ejection fraction was estimated about 30%. A cardiac catheterization demonstrated the absence of significant coronary artery disease, a diagnosis of a nonischemic cardiomyopathy, with associated severe LVH. He presents to the hospital at this time with decompensated systolic heart failure and severe bilateral pulmonary edema. Admits to poor compliance with dietary salt restriction. We will continue guideline directed medical therapy including optimal diuretics, and I have counseled the patient on the importance of restricted salt intake. As outpatient, he has been recommended to have cardiac MRI for infiltrative cardiomyopathy work-up. Subjective Date of service: 10/08/21 Principal diagnosis: Congestive heart failure Interval history: The patient is comfortable, looks and feels better today, no chest pain no new cardiac complaints. He admits to a predilection for a high sodium diet, does not watch his salt intake. Objective Vital Signs Temp Pulse Pulse Pulse Resp Resp Resp 10/08/21 08:25 83 18 10/08/21 06:49 10/08/21 05:13 97.5 F L 94 H 19 10/07/21 21:59 10/07/21 21:12 90 10/07/21 21:03 10/07/21 20:27 10/07/21 20:25 93 H 20 10/07/21 19:00 18 10/07/21 17:22 97.6 F 93 H 20 10/07/21 14:00 105 H 100 H 22 20 10/07/21 11:27 97.9 F 98 H 20 BP Pulse Ox 10/08/21 08:25 96 10/08/21 06:49 97 10/08/21 05:13 115/75 95 10/07/21 21:59 98 10/07/21 21:12 112/72 10/07/21 21:03 112/72 10/07/21 20:27 98 10/07/21 20:25 10/07/21 19:00 98 10/07/21 17:22 113/74 97 10/07/21 14:00 10/07/21 11:27 119/81 100 - Physical Examination General: No Apparent Distress HEENT: Positive: PERRL Neck: Positive: neck supple Cardiac: Positive: Reg Rate and Rhythm Lungs: Positive: Decreased Breath Sounds Neuro: Positive: Grossly Intact Abdomen: Positive: Soft Skin: Positive: Clear Extremities: Absent: edema - Labs and Meds CBC 10/08/21 Range/Units 06:06 WBC 4.2 L (4.5-11.0) K/mm3 RBC 3.70 (3.65-5.03) M/mm3 Hgb 11.9 (11.8-15.2) gm/dl Hct 36.1 (35.5-45.6) % Plt Count 243 (140-440) K/mm3 Lymph # (Auto) 1.0 L (1.2-5.4) K/mm3 [place] # (Auto) 0.4 (0.0-0.8) K/mm3 Eos # (Auto) 0.0 (0.0-0.4) K/mm3 Baso # (Auto) 0.0 (0.0-0.1) K/mm3 Comprehensive Metabolic Panel 10/08/21 Range/Units 06:06 Sodium 135 L (137-145) mmol/L Potassium 5.1 H D (3.6-5.0) mmol/L Chloride 97.4 L (98-107) mmol/L Carbon Dioxide 28 D (22-30) mmol/L BUN 13 (9-20) mg/dL Creatinine 0.9 (0.8-1.3) mg/dL Glucose 115 H (75-100) mg/dL Calcium 9.2 (8.4-10.2) mg/dL
[2021-10-09] MEDS: FUROSEMIDE 40 MG/4 ML INJ IV SCH ×3 (05:38→17:14)
[2021-10-09] MEDS: IPRATROPIUM/ALBUTEROL SULFATE 3 ML AMPUL.NEB IH SCH ×3 (07:40→20:57)
[2021-10-09] MEDS: HEPARIN 5,000 UNIT/1 ML VIAL SUB-Q SCH ×2 (09:57→21:30)
[2021-10-09] MEDS: METOPROLOL TARTRATE 25 MG TAB PO SCH ×2 (09:57→21:29)
[2021-10-09] MEDS: ASPIRIN EC 81 MG TAB PO SCH (09:57)
[2021-10-09] MEDS: FAMOTIDINE 20 MG TAB PO SCH ×2 (09:57→21:30)
[2021-10-09] MEDS: LISINOPRIL 20 MG TAB PO SCH (09:58)
--- NOTE | 2021-10-09 10:55 | Progress Note ---
Assessment and Plan - Patient Problems (1) Acute exacerbation of CHF (congestive heart failure) Current Visit: Yes Status: Acute Plan to address problem: History of nonischemic cardiomyopathy. An echocardiogram done last month showed moderately severe left ventricular systolic dysfunction, in the setting of severe, concentric left ventricle hypertrophy left ventricular ejection fraction was estimated about 30%. A cardiac catheterization demonstrated the absence of significant coronary artery disease, a diagnosis of a nonischemic cardiomyopathy, with associated severe LVH. He presents to the hospital at this time with decompensated systolic heart failure and severe bilateral pulmonary edema. Admits to poor compliance with dietary salt restriction. We will continue guideline directed medical therapy including optimal diuretics, and I have counseled the patient on the importance of restricted salt intake. As outpatient, he has been recommended to have cardiac MRI for infiltrative cardiomyopathy work-up. Follow-up in our office in 1 week. Subjective Date of service: 10/09/21 Principal diagnosis: Congestive heart failure Interval history: Patient looks and feels well, no cardiac complaints. He anticipates discharge later today. Objective Vital Signs Temp Pulse Pulse Pulse Resp Resp Resp 10/09/21 07:40 85 18 10/09/21 06:00 10/09/21 05:11 98.2 F 101 H 18 10/08/21 23:38 98.5 F 107 H 18 10/08/21 22:00 10/08/21 21:21 90 10/08/21 21:15 10/08/21 20:40 80 18 10/08/21 16:50 97.5 F L 88 20 10/08/21 13:06 85 18 10/08/21 12:10 97.7 F 20 BP Pulse Ox 10/09/21 07:40 95 10/09/21 06:00 97 10/09/21 05:11 120/74 100 10/08/21 23:38 96/72 88 10/08/21 22:00 97 10/08/21 21:21 100/66 10/08/21 21:15 100/66 10/08/21 20:40 10/08/21 16:50 106/75 98 10/08/21 13:06 10/08/21 12:10 98/72 - Physical Examination General: No Apparent Distress HEENT: Positive: PERRL Neck: Positive: neck supple Cardiac: Positive: Reg Rate and Rhythm Lungs: Positive: clear to auscultation Neuro: Positive: Grossly Intact Abdomen: Positive: Soft Skin: Positive: Clear Extremities: Absent: edema
--- NOTE | 2021-10-10 00:30 | Progress Note ---
Assessment and Plan - Patient Problems (1) Acute respiratory failure with hypoxia Current Visit: Yes Status: Acute Plan to address problem: Needs to be on home oxygen at least 2 to 3 L and home oxygen concentrator (2) Acute exacerbation of CHF (congestive heart failure) Current Visit: Yes Status: Acute Qualifiers: Heart failure type: combined systolic and diastolic Qualified Code(s): I50.43 - Acute on chronic combined systolic (congestive) and diastolic (congestive) heart failure Plan to address problem: Continue IV Lasix and Aldactone Daily weights Daily intake and output LV ejection fraction 30% Optimize his heart failure medications Patient hypoxic on room air Per cardiology The patient is a 75-year-old man who was in this hospital last month, and underwent extensive cardiac ischemic work-up. An echocardiogram showed moderately severe left ventricular systolic dysfunction, in the setting of severe, concentric left ventricle hypertrophy left ventricular ejection fraction was estimated about 30%. He underwent a cardiac catheterization that demonstrated no significant coronary artery disease. He was discharged with a diagnosis of a nonischemic cardiomyopathy, with associated severe LVH. He presents to the hospital at this time with recurrent shortness of breath. He is a poor historian, I am unable to discern if he was compliant with prescribed medical therapy or dietary salt restrictions. EKG on presentation was a sinus rhythm with poor R wave progression, nonspecific ST and T wave changes, no acute ischemia or infarction. Chest x-ray reveals severe bilateral pulmonary edema. He now looks and feels better, shortness of breath is improved following initial hospital therapy. (3) Bilateral pleural effusion Current Visit: Yes Status: Chronic Plan to address problem: Secondary to CHF Optimize CHF medications (4) Hypertension Current Visit: Yes Status: Chronic Qualifiers: Hypertension type: primary hypertension Qualified Code(s): I10 - Essential (primary) hypertension Plan to address problem: Continue antihypertensives (5) DVT prophylaxis Current Visit: No Status: Acute Plan to address problem: On anticoagulation GI prophylaxis (6) Advance care planning Current Visit: Yes Status: Acute Plan to address problem: Disease education conducted, care plan discussed, diagnosis discussed, prognosis discussed. Patient patient acknowledged understanding and agreement with care plan.++ 30 minutes. Subjective Date of service: 10/08/21 Principal diagnosis: Congestive heart failure Interval history: 75-year-old male with past medical history of congestive heart failure and tobacco abuse was brought to the emergency room because of short of breath which recurrent patient that has been going on for several days now. According to the patient also was recently admitted to the hospital for the same. On arrival, patient was sating at 79% and after albuterol given; up to 85-90%. On arrival, patient is on non-rebreather sating in high 80s and verbal order was to get RT to start BIPAP. In the emergency room patient is found to have acute CHF exacerbation. Patient proBNP is 10/04/2007, lactic acid 3.00. Chest CTA shows no evidence of PE. A small to moderate bilateral pleural effusion with loculated appearance. Moderate centrilobular emphysema. So going to admit the patient we will put the patient on CHF pathway also put the patient on antibiotic and consult cardiology for evaluation 10/08/2021 Patient still short of breath Moderate improvement October 09, 2021 Shortness of breath is improved Patient waiting for home oxygen and concentrator Objective - Constitutional Vitals: Vital Signs - 12hr 10/09/21 10/09/21 10/09/21 14:38 16:19 20:00 Temperature 98.0 F Pulse Rate 77 Pulse Rate [ 85 82 Posterior Bilateral Throughout] Respiratory 20 Rate Respiratory 20 20 Rate [Posterior Bilateral Throughout] Blood Pressure 88/64 O2 Sat by Pulse 91 Oximetry 10/09/21 10/09/21 10/09/21 20:59 21:12 21:29 Temperature 97.8 F Pulse Rate 91 H 91 H Pulse Rate [ Posterior Bilateral Throughout] Respiratory 16 Rate Respiratory Rate [Posterior Bilateral Throughout] Blood Pressure 92/59 92/59 O2 Sat by Pulse 96 95 Oximetry General appearance: Present: no acute distress, well-nourished - EENT Eyes: PERRL, EOM intact ENT: hearing intact, clear oral mucosa Ears: bilateral: normal - Neck Neck: supple, normal ROM - Respiratory Respiratory effort: normal Respiratory: bilateral: CTA - Breasts Breasts: normal - Cardiovascular Heart rate: 78 Rhythm: regular Heart Sounds: Present: S1 & S2. Absent: gallop, rub Extremities: pulses intact, No edema, normal color, Full ROM - Gastrointestinal General gastrointestinal: Present: soft, non-tender, non-distended, normal bowel sounds - Genitourinary Male genitourinary: normal - Integumentary Integumentary: clear, warm, dry - Musculoskeletal Musculoskeletal: 1, strength equal bilaterally - Neurologic Neurologic: moves all extremities - Psychiatric Psychiatric: memory intact, appropriate mood/affect, intact judgment & insight - Labs CBC & Chem 7: 10/10/21 05:54 10/10/21 05:54
--- NOTE | 2021-10-10 00:31 | Progress Note ---
Assessment and Plan - Patient Problems (1) Acute exacerbation of CHF (congestive heart failure) Current Visit: Yes Status: Acute Qualifiers: Heart failure type: combined systolic and diastolic Qualified Code(s): I50.43 - Acute on chronic combined systolic (congestive) and diastolic (congestive) heart failure Plan to address problem: Continue IV Lasix and Aldactone Daily weights Daily intake and output LV ejection fraction 30% Optimize his heart failure medications Patient hypoxic on room air Per cardiology The patient is a 75-year-old man who was in this hospital last month, and underwent extensive cardiac ischemic work-up. An echocardiogram showed moderately severe left ventricular systolic dysfunction, in the setting of severe, concentric left ventricle hypertrophy left ventricular ejection fraction was estimated about 30%. He underwent a cardiac catheterization that demonstrated no significant coronary artery disease. He was discharged with a diagnosis of a nonischemic cardiomyopathy, with associated severe LVH. He presents to the hospital at this time with recurrent shortness of breath. He is a poor historian, I am unable to discern if he was compliant with prescribed medical therapy or dietary salt restrictions. EKG on presentation was a sinus rhythm with poor R wave progression, nonspecific ST and T wave changes, no acute ischemia or infarction. Chest x-ray reveals severe bilateral pulmonary edema. He now looks and feels better, shortness of breath is improved following initial hospital therapy. (2) Hypoxia Current Visit: No Status: Acute Plan to address problem: Patient may need home oxygen Patient wants to go home (3) Hypertension Current Visit: Yes Status: Chronic Qualifiers: Hypertension type: primary hypertension Qualified Code(s): I10 - Essential (primary) hypertension Plan to address problem: Continue antihypertensives (4) DVT prophylaxis Current Visit: No Status: Acute Plan to address problem: On anticoagulation GI prophylaxis (5) Advance care planning Current Visit: Yes Status: Acute Plan to address problem: Disease education conducted, care plan discussed, diagnosis discussed, prognosis discussed. Patient patient acknowledged understanding and agreement with care plan.++ 30 minutes. Subjective Date of service: 10/08/21 Principal diagnosis: Congestive heart failure Interval history: 75-year-old male with past medical history of congestive heart failure and t obacco abuse was brought to the emergency room because of short of breath which recurrent patient that has been going on for several days now. According to the patient also was recently admitted to the hospital for the same. On arrival, patient was sating at 79% and after albuterol given; up to 85-90%. On arrival, patient is on non-rebreather sating in high 80s and verbal order was to get RT t o start BIPAP. In the emergency room patient is found to have acute CHF exacerbation. Patient proBNP is 10/04/2007, lactic acid 3.00. Chest CTA shows no evidence of PE. A small to moderate bilateral pleural effusion with loculated appearance. Moderate centrilobular emphysema. So going to admit the patient we will put the patient on CHF pathway also put the patient on antibiotic and consult cardiology for evaluation 10/08/2021 Patient still short of breath Moderate improvement Objective - Constitutional Vitals: Vital Signs - 12hr 10/09/21 10/09/21 10/09/21 14:38 16:19 20:00 Temperature 98.0 F Pulse Rate 77 Pulse Rate [ 85 82 Posterior Bilateral Throughout] Respiratory 20 Rate Respiratory 20 20 Rate [Posterior Bilateral Throughout] Blood Pressure 88/64 O2 Sat by Pulse 91 Oximetry 10/09/21 10/09/21 10/09/21 20:59 21:12 21:29 Temperature 97.8 F Pulse Rate 91 H 91 H Pulse Rate [ Posterior Bilateral Throughout] Respiratory 16 Rate Respiratory Rate [Posterior Bilateral Throughout] Blood Pressure 92/59 92/59 O2 Sat by Pulse 96 95 Oximetry General appearance: Present: no acute distress, well-nourished - EENT Eyes: PERRL, EOM intact ENT: hearing intact, clear oral mucosa Ears: bilateral: normal - Neck Neck: supple, normal ROM - Respiratory Respiratory effort: normal Respiratory: bilateral: CTA - Breasts Breasts: normal - Cardiovascular Rhythm: regular Heart Sounds: Present: S1 & S2. Absent: gallop, rub Extremities: pulses intact, No edema, normal color, Full ROM - Gastrointestinal General gastrointestinal: Present: soft, non-tender, non-distended, normal bowel sounds - Genitourinary Male genitourinary: normal - Integumentary Integumentary: clear, warm, dry - Musculoskeletal Musculoskeletal: 1, strength equal bilaterally - Neurologic Neurologic: moves all extremities - Psychiatric Psychiatric: memory intact, appropriate mood/affect, intact judgment & insight - Labs CBC & Chem 7: 10/10/21 05:54 10/10/21 05:54 Labs: Chest CTA No CT evidence for pulmonary embolism [id number] bilateral pleural effusions with loculated appearance Moderate centrilobular and COVID-19 positive test (U07.1, COVID-19) with Acute Pneumonia (J12.89, Other viral pneumonia) (If respiratory failure or sepsis present, add as separate assessment) Superimposed area of cellulitis near sinusitis and pulmonary edema additional partial lobar atelectasis of the lower lobe versus demonstrated
[2021-10-10] MEDS: FUROSEMIDE 40 MG/4 ML INJ IV SCH ×2 (05:42→17:27)
[2021-10-10 06:31] LABS: Basophils % (Auto) 0.7 % (0.0-1.8); Hematocrit 33.8 % (35.5-45.6); Hemoglobin 11.2 gm/dl (11.8-15.2); Lymphocytes # (Auto) 1.3 K/mm3 (1.2-5.4); Lymphocytes % (Auto) 37.7 % (13.4-35.0); Mean Corpuscular HGB Conc 33 % (32-34); Mean Corpuscular Volume 98 fl (84-94); Monocytes # (Auto) 0.3 K/mm3 (0.0-0.8); Monocytes % (Auto) 7.6 % (0.0-7.3); Platelet Count 237 K/mm3 (140-440); Red Blood Count 3.45 M/mm3 (3.65-5.03); Red Cell Distribution Width 13.3 % (13.2-15.2)
[2021-10-10 06:47] LABS: Blood Urea Nitrogen 12 mg/dL (9-20); Calcium 8.4 mg/dL (8.4-10.2); Hemolysis Index 3
[2021-10-10 06:58] LABS: BUN/Creatinine Ratio 20
[2021-10-10] MEDS: IPRATROPIUM/ALBUTEROL SULFATE 3 ML AMPUL.NEB IH SCH ×3 (08:02→20:30)
[2021-10-10] MEDS: LISINOPRIL 20 MG TAB PO SCH (09:48)
[2021-10-10] MEDS: METOPROLOL TARTRATE 25 MG TAB PO SCH ×2 (09:48→21:23)
[2021-10-10] MEDS: ASPIRIN EC 81 MG TAB PO SCH (09:50)
[2021-10-10] MEDS: FAMOTIDINE 20 MG TAB PO SCH ×2 (09:50→21:23)
[2021-10-10] MEDS: HEPARIN 5,000 UNIT/1 ML VIAL SUB-Q SCH ×2 (09:51→21:24)
--- NOTE | 2021-10-10 16:32 | Progress Note ---
Assessment and Plan - Patient Problems (1) Acute exacerbation of CHF (congestive heart failure) Current Visit: Yes Status: Acute Plan to address problem: History of nonischemic cardiomyopathy. An echocardiogram done last month showed moderately severe left ventricular systolic dysfunction, in the setting of severe, concentric left ventricle hypertrophy left ventricular ejection fraction was estimated about 30%. A cardiac catheterization demonstrated the absence of significant coronary artery disease, a diagnosis of a nonischemic cardiomyopathy, with associated severe LVH. He presents to the hospital at this time with decompensated systolic heart failure and severe bilateral pulmonary edema. Admits to poor compliance with dietary salt restriction. We will continue guideline directed medical therapy including optimal diuretics, and I have counseled the patient on the importance of restricted salt intake. As outpatient, he has been recommended to have cardiac MRI for infiltrative cardiomyopathy work-up. Follow-up in our office in 1 week. Subjective Date of service: 10/10/21 Principal diagnosis: Congestive heart failure Interval history: Patient is comfortable, looks and feels well, no cardiac events reported. His discharge is apparently delayed by the need for ambulatory oxygen therapy set up at his home. Objective Vital Signs Temp Pulse Pulse Pulse Resp Resp Resp 10/10/21 14:05 86 82 18 18 10/10/21 11:46 97.6 F 87 18 10/10/21 10:00 10/10/21 08:02 84 79 18 18 10/10/21 05:02 98.0 F 90 16 10/09/21 22:00 17 10/09/21 21:29 91 H 10/09/21 21:12 97.8 F 91 H 16 10/09/21 20:59 10/09/21 20:00 82 20 BP Pulse Ox 10/10/21 14:05 10/10/21 11:46 105/73 98 10/10/21 10:00 97 10/10/21 08:02 98 10/10/21 05:02 109/63 97 10/09/21 22:00 95 10/09/21 21:29 92/59 10/09/21 21:12 92/59 95 10/09/21 20:59 96 10/09/21 20:00 - Physical Examination General: No Apparent Distress HEENT: Positive: PERRL Neck: Positive: neck supple Cardiac: Positive: Reg Rate and Rhythm Lungs: Positive: Decreased Breath Sounds Neuro: Positive: Grossly Intact Abdomen: Positive: Soft Skin: Positive: Clear Extremities: Absent: edema - Labs and Meds CBC 10/10/21 Range/Units 05:54 WBC 3.6 L (4.5-11.0) K/mm3 RBC 3.45 L (3.65-5.03) M/mm3 Hgb 11.2 L (11.8-15.2) gm/dl Hct 33.8 L (35.5-45.6) % Plt Count 237 (140-440) K/mm3 Lymph # (Auto) 1.3 (1.2-5.4) K/mm3 [place] # (Auto) 0.3 (0.0-0.8) K/mm3 Eos # (Auto) 0.0 (0.0-0.4) K/mm3 Baso # (Auto) 0.0 (0.0-0.1) K/mm3 Comprehensive Metabolic Panel 10/10/21 Range/Units 05:54 Sodium 135 L (137-145) mmol/L Potassium 4.0 D (3.6-5.0) mmol/L Chloride 97.2 L (98-107) mmol/L Carbon Dioxide 31 H (22-30) mmol/L BUN 12 (9-20) mg/dL Creatinine 0.6 L (0.8-1.3) mg/dL Glucose 101 H (75-100) mg/dL Calcium 8.4 (8.4-10.2) mg/dL
[2021-10-11] MEDS: FUROSEMIDE 40 MG/4 ML INJ IV SCH (05:50)
--- NOTE | 2021-10-11 08:44 | Progress Note ---
Assessment and Plan - Patient Problems (1) Acute respiratory failure with hypoxia Current Visit: Yes Status: Acute Plan to address problem: Needs to be on home oxygen at least 2 to 3 L and home oxygen concentrator (2) Acute exacerbation of CHF (congestive heart failure) Current Visit: Yes Status: Acute Qualifiers: Heart failure type: combined systolic and diastolic Qualified Code(s): I50.43 - Acute on chronic combined systolic (congestive) and diastolic (congestive) heart failure Plan to address problem: Continue IV Lasix and Aldactone Daily weights Daily intake and output LV ejection fraction 30% Optimize his heart failure medications Patient hypoxic on room air Per cardiology The patient is a 75-year-old man who was in this hospital last month, and underwent extensive cardiac ischemic work-up. An echocardiogram showed moderately severe left ventricular systolic dysfunction, in the setting of severe, concentric left ventricle hypertrophy left ventricular ejection fraction was estimated about 30%. He underwent a cardiac catheterization that demonstrated no significant coronary artery disease. He was discharged with a diagnosis of a nonischemic cardiomyopathy, with associated severe LVH. He presents to the hospital at this time with recurrent shortness of breath. He is a poor historian, I am unable to discern if he was compliant with prescribed medical therapy or dietary salt restrictions. EKG on presentation was a sinus rhythm with poor R wave progression, nonspecific ST and T wave changes, no acute ischemia or infarction. Chest x-ray reveals severe bilateral pulmonary edema. He now looks and feels better, shortness of breath is improved following initial hospital therapy. (3) Bilateral pleural effusion Current Visit: Yes Status: Chronic Plan to address problem: Secondary to CHF Optimize CHF medications (4) Hypertension Current Visit: Yes Status: Chronic Qualifiers: Hypertension type: primary hypertension Qualified Code(s): I10 - Essential (primary) hypertension Plan to address problem: Continue antihypertensives (5) DVT prophylaxis Current Visit: No Status: Acute Plan to address problem: On anticoagulation GI prophylaxis (6) Advance care planning Current Visit: Yes Status: Acute Plan to address problem: Disease education conducted, care plan discussed, diagnosis discussed, prognosis discussed. Patient patient acknowledged understanding and agreement with care plan.++ 30 minutes. (7) Discharge planning issues Current Visit: Yes Status: Acute Plan to address problem: Patient is ready for discharge Home oxygen and home concentrator to be arranged Subjective Date of service: 10/10/21 Principal diagnosis: Congestive heart failure Interval history: 75-year-old male with past medical history of congestive heart failure and tobacco abuse was brought to the emergency room because of short of breath which recurrent patient that has been going on for several days now. According to the patient also was recently admitted to the hospital for the same. On arrival, patient was sating at 79% and after albuterol given; up to 85-90%. On arrival, patient is on non-rebreather sating in high 80s and verbal order was to get RT to start BIPAP. In the emergency room patient is found to have acute CHF exacerbation. Patient proBNP is 10/04/2007, lactic acid 3.00. Chest CTA shows no evidence of PE. A small to moderate bilateral pleural effusion with loculated appearance. Moderate centrilobular emphysema. So going to admit the patient we will put the patient on CHF pathway also put the patient on antibiotic and consult cardiology for evaluation 10/08/2021 Patient still short of breath Moderate improvement October 09, 2021 Shortness of breath is improved Patient waiting for home oxygen and concentrator 10/10/2021 's patient is symptomatically better Patient waiting for home oxygen and concentrator.. If home oxygen and concentrator are arranged patient can be discharged Patient's medications for congestive heart failure optimized Objective - Constitutional Vitals: Vital Signs - 12hr 10/10/21 10/10/21 10/11/21 21:23 22:00 04:51 Temperature 98.1 F Pulse Rate 90 88 Respiratory 17 18 Rate Blood Pressure 124/81 125/83 O2 Sat by Pulse 97 98 Oximetry General appearance: Present: no acute distress, well-nourished - EENT Eyes: PERRL, EOM intact ENT: hearing intact, clear oral mucosa Ears: bilateral: normal - Neck Neck: supple, normal ROM - Respiratory Respiratory effort: normal Respiratory: bilateral: CTA - Breasts Breasts: normal - Cardiovascular Heart rate: 78 Rhythm: regular Heart Sounds: Present: S1 & S2. Absent: gallop, rub Extremities: pulses intact, No edema, normal color, Full ROM - Gastrointestinal General gastrointestinal: Present: soft, non-tender, non-distended, normal bowel sounds - Genitourinary Male genitourinary: normal - Integumentary Integumentary: clear, warm, dry - Musculoskeletal Musculoskeletal: 1, strength equal bilaterally - Neurologic Neurologic: moves all extremities - Psychiatric Psychiatric: memory intact, appropriate mood/affect, intact judgment & insight - Labs CBC & Chem 7: 10/10/21 05:54 10/10/21 05:54
[2021-10-11] MEDS: IPRATROPIUM/ALBUTEROL SULFATE 3 ML AMPUL.NEB IH SCH (09:45)
[2021-10-11] MEDS: ASPIRIN EC 81 MG TAB PO SCH (10:30)
[2021-10-11] MEDS: LISINOPRIL 20 MG TAB PO SCH (10:30)
[2021-10-11] MEDS: FAMOTIDINE 20 MG TAB PO SCH (10:31)
[2021-10-11] MEDS: METOPROLOL TARTRATE 25 MG TAB PO SCH (10:31)
[2021-10-11 10:32] VITALS: BP 95/68
[2021-10-11] MEDS: HEPARIN 5,000 UNIT/1 ML VIAL SUB-Q SCH (10:32)
--- NOTE | 2021-10-11 11:13 | Progress Note ---
Assessment and Plan - Patient Problems (1) Acute exacerbation of CHF (congestive heart failure) Current Visit: Yes Status: Acute Qualifiers: Heart failure type: combined systolic and diastolic Qualified Code(s): I50.43 - Acute on chronic combined systolic (congestive) and diastolic (congestive) heart failure Plan to address problem: History of nonischemic cardiomyopathy. An echocardiogram done last month showed moderately severe left ventricular systolic dysfunction, in the setting of severe, concentric left ventricle hypertrophy left ventricular ejection fraction was estimated about 30%. A cardiac catheterization demonstrated the absence of significant coronary artery disease, a diagnosis of a nonischemic cardiomyopathy, with associated severe LVH. He presents to the hospital at this time with decompensated systolic heart failure and severe bilateral pulmonary edema. Admits to poor compliance with dietary salt restriction. We will continue guideline directed medical therapy including optimal diuretics, and I have counseled the patient on the importance of restricted salt intake. As outpatient, he has been recommended to have cardiac MRI for infiltrative c ardiomyopathy work-up. Follow-up in our office in 1 week. Subjective Date of service: 10/11/21 Principal diagnosis: Congestive heart failure Interval history: Patient is comfortable, looks and feels well, no cardiac events reported. His discharge is apparently delayed by the need for ambulatory oxygen therapy set up at his home. Objective Vital Signs Temp Pulse Pulse Pulse Resp Resp Resp 10/11/21 10:31 74 10/11/21 10:30 74 10/11/21 04:51 98.1 F 88 18 10/10/21 22:00 17 10/10/21 21:23 90 10/10/21 16:09 97.8 F 73 18 10/10/21 14:05 86 82 18 18 10/10/21 11:46 97.6 F 87 18 BP Pulse Ox 10/11/21 10:31 95/68 10/11/21 10:30 95/68 10/11/21 04:51 125/83 98 10/10/21 22:00 97 10/10/21 21:23 124/81 10/10/21 16:09 100/69 98 10/10/21 14:05 10/10/21 11:46 105/73 98 - Physical Examination General: No Apparent Distress HEENT: Positive: PERRL Neck: Positive: neck supple Cardiac: Positive: Reg Rate and Rhythm Lungs: Positive: Decreased Breath Sounds Neuro: Positive: Grossly Intact Abdomen: Positive: Soft Skin: Positive: Clear Extremities: Absent: edema
--- NOTE | 2021-10-11 20:06 | Discharge Summary ---
Providers - Providers Date of Admission: 10/07/21 05:24 Attending physician: LAISHA CASTREJON 10/07/21 05:24 Consult to Physician [CONS] Routine Comment: Consulting Provider: TIARA AGUILAR Physician Instructions: Reason For Exam: chf Primary care physician: UDAY CREWS Hospitalization Condition: Stable Disposition: 01 HOME / SELF CARE / HOMELESS Exam - Constitutional Vitals: Temp Pulse Resp BP Pulse Ox 98.1 F 74 18 95/68 100 10/11/21 04:51 10/11/21 10:31 10/11/21 10:00 10/11/21 10:31 10/11/21 10:00 Plan Follow up with: FABY STALEY MD [Staff Physician] - 7 Days UDAY CREWS MD [Primary Care Provider] - 3-5 Days Other Discharge Orders: Oxygen (Amb) Location: None Selected
== END 2021-10-11 12:55 | disposition home or self-care (01) | DRG 291 ==
LOC: ED 00:56 → 4A 05:24 → 3A 05:36
PROVIDERS: ADMIT Hospitalist; ATTEND Internal Medicine
PROC: 4A033R1 Measurement of Arterial Saturation, Peripheral, Percutaneous Approach (ICD-10-PCS; principal; 2021-10-07)
PROC: 5A09357 Assistance with Respiratory Ventilation, Less than 24 Consecutive Hours, Continuous Positive Airway Pressure (ICD-10-PCS; 2021-10-07)
DX: I11.0 Hypertensive heart disease with heart failure (principal); I50.43 Acute on chronic combined systolic (congestive) and diastolic (congestive) heart failure; J96.01 Acute respiratory failure with hypoxia; J81.1 Chronic pulmonary edema; I42.8 Other cardiomyopathies; F17.200 Nicotine dependence, unspecified, uncomplicated; Z20.822 Contact with and (suspected) exposure to COVID-19; Z71.6 Tobacco abuse counseling; Z82.49 Family history of ischemic heart disease and other diseases of the circulatory system
CPT/HCPCS: 36415; 36600; 71045; 71275; 80048; 80053; 82140; 82728; 82803; 83615; 83880; 84145; 85007; 85025; 85379; 86140; 93005; 94640; 94644; 94760; 96365; 96366; 96375; G0378; J0692; J1644; J1940; J1956; J2930; J3370; Q9967; U0003

== ENCOUNTER 2021-12-05 08:42 | Emergency (ER) | payer MEDICARE ==
[2021-12-05 08:51] VITALS: BP 100/70
[2021-12-05 10:23] LABS: Basophils # (Auto) 0.1 K/mm3 (0.0-0.1); Basophils % (Auto) 1.9 % (0.0-1.8); Eosinophils # (Auto) 0.1 K/mm3 (0.0-0.4); Eosinophils % (Auto) 1.7 % (0.0-4.3); Hemoglobin 11.8 gm/dl (11.8-15.2); Lymphocytes # (Auto) 1.4 K/mm3 (1.2-5.4); Lymphocytes % (Auto) 46.4 % (13.4-35.0); Mean Corpuscular HGB Conc 34 % (32-34); Mean Corpuscular Volume 97 fl (84-94); Monocytes # (Auto) 0.3 K/mm3 (0.0-0.8); Monocytes % (Auto) 9.1 % (0.0-7.3); Platelet Count 221 K/mm3 (140-440); Red Blood Count 3.62 M/mm3 (3.65-5.03); Red Cell Distribution Width 13.4 % (13.2-15.2)
[2021-12-05 10:46] LABS: BUN/Creatinine Ratio 13; Blood Urea Nitrogen 10 mg/dL (9-20); Calcium 8.9 mg/dL (8.4-10.2); Hemolysis Index 5
== END 2021-12-05 10:35 | disposition left against medical advice (07) ==
LOC: ED 08:42
DX: E87.5 Hyperkalemia (principal); Z53.21 Procedure and treatment not carried out due to patient leaving prior to being seen by health care provider
CPT/HCPCS: 36415; 80048; 85025